=== PATIENT | female | born 2000 | race Two or more races ===

== ENCOUNTER 2024-02-09 15:12 | Emergency (ER) | payer OTHER ==
[~2024-02-09] VITALS: Ht 172.7 cm; Wt 83.9 kg
[2024-02-09] MEDS ORDERED: CEFTRIAXONE SODIUM 1,000 MG VIAL IM ONE (18:00)
[2024-02-09] MEDS ORDERED: CEPHALEXIN500 MG PO (18:38)
== END 2024-02-09 18:49 ==
LOC: ER 15:13
DX: S60.418A Abrasion of other finger, initial encounter (principal); W45.8XXA Other foreign body or object entering through skin, initial encounter; Y93.89 Activity, other specified; Y92.89 Other specified places as the place of occurrence of the external cause; Y99.8 Other external cause status